=== PATIENT | male | born 1980 | race Caucasian/White ===

== ENCOUNTER 2022-05-22 18:57 | Emergency (ER) | payer BC, MEDICAID ==
[~2022-05-22] VITALS: Ht 170.2 cm; Wt 72.6 kg
[2022-05-22 20:02] VITALS: BP 110/72
[2022-05-22] MEDS ORDERED: AZIT250T13 PO (21:21)
--- NOTE | 2022-05-22 21:56 | NUR ---
Patient discharged to home in stable condition. Written and verbal after care instructions given. Patient verbalizes understanding of instruction.
== END 2022-05-22 21:56 | disposition home or self-care (01) ==
LOC: ER 19:09
DX: J40 Bronchitis, not specified as acute or chronic (principal); R05.3 Chronic cough
CPT/HCPCS: 71045-TC